=== PATIENT | female | born 1965 | race Caucasian/White ===

== ENCOUNTER 2022-05-03 17:02 | Emergency (ER) | payer BC, OTHER ==
[~2022-05-03] VITALS: Ht 165.1 cm; Wt 99.8 kg
[2022-05-03] MEDS ORDERED: MECLIZINE HCL 12.5 MG TAB PO ONE (17:45)
[2022-05-03] MEDS ORDERED: MECLIZINE HCL12.5 MG PO (17:49)
[2022-05-03] MEDS ORDERED: ONDANSETRON ODT4 MG PO (18:00)
[2022-05-03 18:07] VITALS: BP 130/73
== END 2022-05-03 18:10 | disposition home or self-care (01) ==
LOC: ER 17:08
DX: H81.10 Benign paroxysmal vertigo, unspecified ear (principal); E03.9 Hypothyroidism, unspecified
CPT/HCPCS: 99283; J8597